=== PATIENT | male | born 1985 | race Caucasian/White ===

== ENCOUNTER 2024-07-28 18:05 | Emergency (ER) | payer BC ==
[~2024-07-28] VITALS: Ht 185.4 cm; Wt 79.4 kg
[~2024-07-28 18:05] MED LIST changes: -ACETAMINOPHEN 1000 MG/100 ML 100 ML IV ONE; -DEXAMETHASONE SOD PHOS INJ 4 MG/ML SDV ONE; -FENTANYL CITRATE/PF 100MCG/2 ML INJ ONE; -GLYCOPYRROLATE INJ 0.2 MG/ML VIAL ONE; -LIDOCAINE HCL 2% LOCAL INJ 5 ML SDV VIAL INJ ONE; -NEOSTIGMINE 1 MG/ML 10ML VIAL ONE; -OCUFLOX5 ML OS; -ONDANSETRON HCL INJ 2MG/ML 2ML 2 MG/ML VIAL ONE; -PROPOFOL IV EMULSION 10 MG/ML 20 ML VIAL ONE; -ROCURONIUM BROMIDE 1 ML IV ONE; -SEVOFLURANE INHAL SOLN 250 ML PEN BTL ONE
[2024-07-28] MEDS: TETRACAINE HCL 0.5% OPTH SOLN 4 ML BTL OP ONE (19:41)
[2024-07-28] MEDS: FLUORESCEIN SOD(OPTH) 1 MG STRP OP ONE (19:41)
[2024-07-28] MEDS: EYE IRRIGATION (OPTH) 120 ML BTL OP ONE (19:41)
[2024-07-28] MEDS ORDERED: OCUFLOX5 ML OS (19:46)
[2024-07-28 20:30] VITALS: PULSE 76; RESP 16; TEMP 98.6; O2SAT 98
== END 2024-07-28 20:30 | disposition home or self-care (01) ==
LOC: ER 18:39
DX: H18.822 Corneal disorder due to contact lens, left eye (principal); H57.12 Ocular pain, left eye
CPT/HCPCS: 70486; 99283

== ENCOUNTER → 2024-07-28 | Day surgery (SDC) | payer BC ==
[~2024-07-28] MED LIST: ACETAMINOPHEN 1000 MG/100 ML 100 ML IV ONE; DEXAMETHASONE SOD PHOS INJ 4 MG/ML SDV ONE; FENTANYL CITRATE/PF 100MCG/2 ML INJ ONE; GLYCOPYRROLATE INJ 0.2 MG/ML VIAL ONE; IBUPROFEN400 MG PO; LIDOCAINE HCL 2% LOCAL INJ 5 ML SDV VIAL INJ ONE; MAGNESIUM400 MG PO; MULTI-VITAMIN1 EACH PO; NEOSTIGMINE 1 MG/ML 10ML VIAL ONE; OCUFLOX5 ML OS; ONDANSETRON HCL INJ 2MG/ML 2ML 2 MG/ML VIAL ONE; PROPOFOL IV EMULSION 10 MG/ML 20 ML VIAL ONE; QUETIAPINE FUM100 MG PO; ROCURONIUM BROMIDE 1 ML IV ONE; SEVOFLURANE INHAL SOLN 250 ML PEN BTL ONE; TYLENOL325 MG PO; VIT B12 PO
[2024-07-28] MEDS: LACTATED RINGER'S 1,000 ML ONE (08:28)
[2024-07-28] MEDS: FENTANYL CITRATE/PF 100MCG/2 ML INJ ONE (11:25)
[2024-07-28] MEDS: ONDANSETRON HCL INJ 2MG/ML 2ML 2 MG/ML VIAL ONE (11:46)
[2024-07-28 12:18] VITALS: BP 149/96; PULSE 84; RESP 19; O2SAT 97
== END | disposition home or self-care (01) ==
LOC: OR 05:46
PROVIDERS: ATTEND Otolaryngology Otolaryngology/Facial Plastic Surgery
DX: J32.0 Chronic maxillary sinusitis (principal); J34.89 Other specified disorders of nose and nasal sinuses; J34.2 Deviated nasal septum; J33.0 Polyp of nasal cavity; F17.210 Nicotine dependence, cigarettes, uncomplicated; G89.29 Other chronic pain; Z88.1 Allergy status to other antibiotic agents; Z79.1 Long term (current) use of non-steroidal anti-inflammatories (NSAID); Z79.899 Other long term (current) drug therapy
CPT/HCPCS: 30520; 31259; 31267; 31276; 71046; 88300; 88304; 93005; J0131; J1100; J2003; J2405; J2704; J2710; J3010; J7121